=== PATIENT | male | born 1985 | race Caucasian/White ===

== ENCOUNTER 2020-05-13 23:27 | Observation (INO) | payer SELFPAY ==
[2020-05-13 23:43] VITALS: BMI 27.6
[2020-05-14] MEDS ORDERED: Dextrose 5% in Water 1,000 ML IV PRN (00:25)
[2020-05-14] MEDS ORDERED: hydrALAZINE 20 MG/ML VIAL SLOW IVP PRN (00:25)
[2020-05-14] MEDS ORDERED: Ondansetron ODT 4 MG TAB PO PRN (00:25)
[2020-05-14] MEDS ORDERED: Morphine 2 MG/ML VIAL SLOW IVP PRN (00:25)
[2020-05-14] MEDS ORDERED: Dextrose 50% Abboject 50 ML SYRINGE SLOW IVP PRN (00:25)
[2020-05-14] MEDS ORDERED: Cyclobenzaprine 10 MG TAB PO PRN (00:25)
[2020-05-14] MEDS ORDERED: traMADol HCl 50 MG TAB PO PRN ×2 (00:25)
[2020-05-14] MEDS ORDERED: Ondansetron PF 4 MG/2 ML Vial IVP PRN (00:25)
[2020-05-14] MEDS ORDERED: Ketorolac Tromethamine 30 MG/ML VIAL IVP SCH (00:45)
[2020-05-14] MEDS: Sodium Chloride 0.9% 1,000 ML IV SCH ×2 (01:02→18:49)
[2020-05-14] MEDS ORDERED: CEFAZOLIN 1 GM in Sodium Chloride 0.9% 100 ML IVPB SCH (02:00)
[2020-05-14 04:46] LABS: SARS-CoV-2 PCR by NAA Not Detected (NotDetected)
[2020-05-14] MEDS: CEFAZOLIN 1 GM in Sodium Chloride 0.9% 100 ML IVPB SCH ×2 (05:28→14:20)
[2020-05-14 05:29] LABS: #Basophils 0.1 thou/uL (0.0-0.2); #Eosinphils 0.1 thou/uL (0.0-0.7); #Lymphocytes 2.4 thou/uL (1.20-3.40); #Monocytes 1.1 thou/uL (0.11-0.59); #Neutrophils 4.6 thou/uL (1.40-6.50); %Basophils 0.7 % (0.0-1.0); %Eosinophils 1.2 % (0.0-10.0); %Monocytes 13.5 % (0.0-10.0); %Neutrophils 55.6 % (42.0-75.0); Hemoglobin 13.1 g/dL (14.0-18.0); Mean Corpuscular HGB CONC 33.6 g/dL (32.0-36.0); Mean Corpuscular Hemoglobin 31.1 pg (27.0-31.0); Mean Corpuscular Volume 92.6 fL (78.0-98.0); Mean Platelet Volume 7.6 fL (7.4-10.4); Platelet Count 241 thou/uL (130-400); RBC Distribution Width 11.7 % (11.5-14.5); Red Blood Cell (RBC) Count 4.23 mill/uL (4.70-6.10); White Blood Cell (WBC) Count 8.3 thou/uL (4.8-10.8)
[2020-05-14] MEDS: Acetaminophen 325 MG TAB PO SCH ×4 (05:29→22:36)
[2020-05-14] MEDS: Ibuprofen 600 MG TAB PO SCH ×3 (05:29→22:36)
[2020-05-14 05:49] LABS: Anion Gap 12 mmol/L (10-20); BUN (Urea Nitrogen) 14 mg/dL (8.9-20.6); Calc. Creatinine Clearance 176 mL/min (70-130); Calcium 8.2 mg/dL (7.8-10.44); Carbon Dioxide 24 mmol/L (22-29); Chloride 108 mmol/L (98-107); Glucose 108 mg/dL (70-105); Potassium 3.8 mmol/L (3.5-5.1); Sodium 140 mmol/L (136-145)
[2020-05-14] MEDS ORDERED: CEFAZOLIN 2 GM in Premix Bag 1 BAG IVPB SCH (07:45)
[2020-05-14] MEDS ORDERED: cefTRIAXone\\ROCEPHIN 2 GM in Sodium Chloride 0.9% 100 ML IVPB SCH (08:00)
[2020-05-14] MEDS: Famotidine 20 MG TAB PO SCH ×2 (08:26→20:01)
[2020-05-14] MEDS ORDERED: Fentanyl 100 MCG/2 ML VIAL ONE ×2 (10:59→12:18)
[2020-05-14] MEDS ORDERED: Lidocaine 1% PF 5 ML VIAL ONE (11:09)
[2020-05-14] MEDS ORDERED: Ondansetron PF 4 MG/2 ML Vial ONE (11:09)
[2020-05-14] MEDS ORDERED: PROPOFOL 200 MG/20 ML VIAL ONE (11:09)
[2020-05-14] MEDS ORDERED: Bupivacaine PF 0.5% 30 ML VIAL ONE (11:44)
[2020-05-14] MEDS ORDERED: Ondansetron HCl/PF 4 MG/2 ML Vial IVP PRN (12:09)
[2020-05-14] MEDS ORDERED: Promethazine HCl 25 MG/ML VIAL IM PRN (12:09)
[2020-05-14] MEDS ORDERED: Promethazine HCl 25 MG/ML VIAL SLOW IVP PRN (12:09)
[2020-05-14] MEDS ORDERED: HYDROmorphone 0.5 MG/0.5 ML SYRINGE ONE ×2 (12:29→12:40)
[2020-05-14] MEDS ORDERED: traMADol HCl 50 MG TAB PO SCH (19:00)
[2020-05-14] MEDS: ceFAZolin 1 GM/D5W 1 GM in Premix Bag 1 BAG IVPB SCH (20:00)
[2020-05-14] MEDS: traMADol HCl 50 MG TAB PO SCH (20:01)
[2020-05-14] MEDS: Amoxicillin/Potassium Clav 875 MG TAB PO SCH (20:01)
[2020-05-15] MEDS: ceFAZolin 1 GM/D5W 1 GM in Premix Bag 1 BAG IVPB SCH ×2 (04:25→11:09)
[2020-05-15] MEDS: Sodium Chloride 0.9% 1,000 ML IV SCH ×2 (04:25→09:37)
[2020-05-15] MEDS: traMADol HCl 50 MG TAB PO SCH ×3 (04:25→14:37)
[2020-05-15] MEDS: Ibuprofen 600 MG TAB PO SCH ×2 (05:23→14:36)
[2020-05-15] MEDS: Acetaminophen 325 MG TAB PO SCH ×2 (05:23→11:10)
[2020-05-15] MEDS: Amoxicillin/Potassium Clav 875 MG TAB PO SCH (08:21)
[2020-05-15] MEDS: Famotidine 20 MG TAB PO SCH (08:21)
[2020-05-15 16:13] VITALS: BP 120/77; TEMP 98
== END 2020-05-15 17:26 | disposition home or self-care (01) ==
LOC: SURG A 23:27
PROVIDERS: ADMIT Specialist; ATTEND Specialist
PROC: 0SBC0ZZ Excision of Right Knee Joint, Open Approach (ICD-10-PCS; principal; 2020-05-15)
DX: S81.011A Laceration without foreign body, right knee, initial encounter (principal); G89.11 Acute pain due to trauma; F17.210 Nicotine dependence, cigarettes, uncomplicated; Z20.822 Contact with and (suspected) exposure to COVID-19; W26.8XXA Contact with other sharp object(s), not elsewhere classified, initial encounter
CPT/HCPCS: 36415; 80048; 85025; 87635; 96365; 96375; G0378; J0690; J0696; J1170; J1885; J2270; J2405; J2704; J3010; J3490; S0020; U0003; U0005